=== PATIENT | female | born 1950 | race Caucasian/White ===

== ENCOUNTER → 2024-07-30 07:32 | Outpatient (REF) | payer MEDICARE, BC, SELFPAY | LOC: HWRAD 07:32 | PROVIDERS: ATTENDING PHYSICIAN Internal Medicine | DX: F17.210 Nicotine dependence, cigarettes, uncomplicated (principal) | CPT/HCPCS: 71271 ==

== ENCOUNTER → 2024-09-10 11:26 | Outpatient (REF) | payer MEDICARE, BC, SELFPAY | LOC: HWWDC 11:26 | PROVIDERS: ATTENDING PHYSICIAN Internal Medicine | DX: Z12.31 Encounter for screening mammogram for malignant neoplasm of breast (principal) | CPT/HCPCS: 77063; 77067 ==

== ENCOUNTER → 2025-08-30 07:47 | Outpatient (REF) | payer MEDICARE, BC, SELFPAY | LOC: HWRAD 07:47 | PROVIDERS: ATTENDING PHYSICIAN Internal Medicine | DX: F17.210 Nicotine dependence, cigarettes, uncomplicated (principal) | CPT/HCPCS: 71271 ==

== ENCOUNTER 2025-09-12 07:37 | Emergency (ER) | payer MEDICARE, BC, SELFPAY ==
[2025-09-12 07:42] VITALS: BP 184/106
[2025-09-12 08:13] VITALS: BMI 22.9
[2025-09-12 08:17] VITALS: BP 173/95
--- NOTE | 2025-09-12 08:24 | ED.GENMED ---
History of Present Illness
General
Chief Complaint: Musculo-Skeletal Complaint
Source: patient
Time Seen by Provider: 09/12/25 08:05
History of Present Illness
History of Present Illness:
74-year-old female with past medical history of possible early COPD, anxiety and depression presenting to the emergency department for evaluation of left lateral neck pain for the last 3 days, no exact injury that she can recall, does note that she
had been doing extensive outdoor work prior to the pain developing but no exact mechanism of injury and denies any trauma. Pain is constant, no alleviating factors despite taking Motrin and Tylenol as well as using a heating pad and states cannot
get comfortable in any position. Range of motion of the neck does seem to make the pain worse. Denies any focal weakness or numbness to the upper extremity chest pain, shortness of breath, exertional dyspnea, diaphoresis, cough or any other
concerns. Denies any history of similar but does note that she had previous lower back surgery 20 years ago but that she does not have any long-term complications or pain from this.
Past History
Past History
ED Past Medical History: COPD and Hypercholesterolemia
ED Past Surgical History: Gynecological, Orthopedic and Other (Corneal surgery)
Social History
Tobacco: Smoker (1 pack/day)
Alcohol: None
Drug: None
Personal:
Living: with family
Review of Systems
Review of Systems
All Other Systems: ROS reviewed and negative except as documented in HPI and ROS
Phy Exam
Physical Exam
Physical Exam:
GENERAL: Alert , in no apparent distress
HEAD: Normocephalic atraumatic
EYE: conjunctiva clear
NECK: Supple, FROM but with pain especially when turning head leftward, palpable spasm within trapezius and paracervical musculature on the left, no lymphadenopathy
ENT: o/p clr, mmm.
CARDIAC: Regular rate and rhythm, no murmur
LUNGS: Clear breath sounds bilaterally, no acute respiratory distress, no wheezes/rales/rhonchi
NEUROLOGICAL: Alert and oriented
SKIN: Warm and dry, skin intact.
MUSCULOSKELETAL: well perfused.
PSYCH: Normal and appropriate interaction.
Scores
Heart Failure Risk
Heart Failure Risk Score: Not Applicable
Heart Score for Chest Pain Patients
STEMI patient?: Not applicable
Withdrawal Assessment of Alcohol
Withdrawal Assessment Completed?: Not applicable
Course
Orders/Labs/Results
Orders:
Orders
09/12/25 08:22
Electrocardiogram (*1) Urgent
Reason for Study: Other
Other Reason for Exam: neck pain
EKG- Treatment ONCE
Diazepam [Valium] 5 mg PO NOW STA
Ibuprofen [Motrin] 600 mg PO NOW STA
Lidocaine [Lidocaine 4% Patch] 1 patch TOPICAL NOW STA
Apply Lidocaine patch(s) to:: left lateral neck
09/12/25 08:29
Complete Blood Count/With Diff Urgent
Comprehensive Metabolic Panel Urgent
Troponin I Urgent
09/12/25 08:55
CR Cervical Spine 4 Or 5 Vw Urgent
Comment:
Reason For Exam: left lateral neck pain
Abnormal Lab Results
09/12/25
08:29
Creatinine 0.5 L mg/dL
(0.6-1.0)
Glucose 115 H mg/dl
(70-99)
09/12/25 08:29
09/12/25 08:29
Vital Signs
Initial and Last Documented VS:
Initial Vital Signs
Temp Pulse Resp BP Pulse Ox
97.5 F 89 16 184/106 98
09/12/25 07:42 09/12/25 07:42 09/12/25 07:42 09/12/25 07:42 09/12/25 07:42
Last Documented Vital Signs
Temp Pulse Resp BP Pulse Ox
98.3 F 83 18 158/92 98
09/12/25 09:57 09/12/25 09:57 09/12/25 09:57 09/12/25 09:57 09/12/25 09:57
MDM/Problems Addressed
Differential Diagnosis Includes:
Musculoskeletal neck pain
Atypical ACS considered given her smoking history as well as age
Valvular dysfunction
PE
Malignancy
Less concern for infectious etiology
Nerve entrapment
Disc herniation
MDM/Problems Addressed:
74-year-old female presenting to the ER with left lateral neck pain x 3 days, minimal relief with Motrin and Tylenol at home. Pain does seem to be reproducible with palpation as well as range of motion making me suspect muscular etiology. Patient
was noted to be hypertensive in triage as well as at time of my exam, has a considerable smoking history as well as a family history of heart disease so we will check labs including a troponin as well as EKG although my suspicion for ACS is quite
low. X-ray of the cervical spine ordered. Disposition pending.
*Radiology
Radiology exam reviewed: preliminary read by ED provider (Degenerative changes, no fracture)
*Pulse Oximetry
SaO2: 98
Oxygen Mode of Delivery: Room air
Patient hypoxic: no
*EKG
Interpreted by ED Provider?: Yes
Heart Rate: 71
Rate: normal
Rhythm: sinus
Ischemia: no ischemia
*Dehairer Interpretation
Rate: normal
Heart Rate: 78
Rhythm: sinus
*Critical Care Note
Total Time (30-74mins, 75-104mins- exclusive of procedures): Not Applicable
Data Reviewed
Review of Other/Old Records Reveals: Labs, Records and Radiology Studies
Comment
Comment:
Patient did recently have a low-dose lung CT done on August 30 showing a stable pulmonary nodule within the left lower lobe and mild emphysematous changes. No other abnormalities.
Patient Management
Escalation/DeEscalation of care consider admission/obs:
On reevaluation patient notes considerable relief of pain, now noting a 1 out of 10 discomfort she feels comfortable being discharged home. I reviewed patient's x-ray results with her, she will follow-up with primary care provider. Aware of return
precautions. I also discussed with the patient her elevated blood pressure here and need to follow-up with her primary care provider for this.
ED Attending Note
-
Portions of this chart may have been created with voice recognition software.� Occasional wrong word or��sound alike� substitutions may have occurred due to the inherent limitations of voice recognition software.
Discharge Plan
Departure
Patient Disposition: Home (Routine Discharge)
Date of Disposition: 09/12/25
Time of Disposition: 09:43
Patient with high blood pressure during this ER visit?: Yes
Discharge Problem:
Cervicalgia
Instructions: Neck pain - ED (DC)
Prescriptions:
New
methylprednisolone [Medrol (Yung)] 4 mg tablets,dose pack
4 mg PO DIRECTED Qty: 21 0RF
lidocaine [Lidoderm] 5 % adhesive patch,medicated
1 patch topical DAILY Qty: 30 0RF
diazepam [Valium] 5 mg tablet
5 mg PO BID PRN (Reason: muscle spasm) Qty: 10 0RF
No Action
multivitamin [Daily Multiple] 1 EACH tablet
1 ea PO DAILY
calcium carbonate [calcium] 500 MG tablet
500 mg PO
ferrous sulfate [iron] 325 MG tablet
325 mg PO DAILY
escitalopram oxalate 20 MG tablet
20 mg PO DAILY
glucosamine [id number] 1 EACH tablet
1 ea PO
Vitamin D
DAILY
cyclobenzaprine 10 MG tablet
10 mg PO TIDPRN PRN (Reason: spasm) Qty: 12 0RF
prednisone 10 MG tablet
10 mg PO .TAPER Qty: 30 0RF
Rx Instructions:
Take 40mg daily x3days, 30mg daily x3days,
20mg daily x3days, 10mg daily x3days.
oxycodone-acetaminophen 5 MG/325 MG tablet
1 tab PO Q4HPRN PRN (Reason: pain) Qty: 12 0RF
Referrals:
Jean Carlos Peterson MD [Family Provider, Internal Medicine]
Interventions
Interventions:
*Risk Screen - Suicide Last Done: 09/12/25 07:42
*General Assessment Last Done: 09/12/25 07:42
*Neglect/Abuse Screening Last Done: 09/12/25 07:42
*ED- Fall Risk Assessment Last Done: 09/12/25 08:13
*ED COVID-19 Vaccine History Last Done: 09/12/25 08:13
*ED Influenza Vaccine History Last Done: 09/12/25 08:13
*Nursing Disposition Last Done: 09/12/25 09:57
ED-Musculoskeletal Assessment Last Done: 09/12/25 08:13
Discharge Date and Time
Discharge Date/Time: 09/12/25 09:57
Print Language: BANGLADESHI
[2025-09-12] MEDS: MOTRIN 600 MG PO (08:34)
[2025-09-12] MEDS: LIDOCAINE 4% PATCH 1 PATCH TOPICAL (08:34)
[2025-09-12] MEDS: VALIUM 5 MG PO (08:34)
[2025-09-12 08:37] LABS: Hematocrit 46.0 % (37.0-47.0); Hemoglobin 15.2 g/dL (12.0-16.0); Mean Corp Hgb Conc. 33.0 g/dL (33.0-37.0); Mean Corpuscular Volume 91.3 fL (81.0-99.0); Nucleated Red Blood Cells % 0 %; Platelet Count 216 10^3/uL (130-400); Red Cell Dist. Width 13.3 % (11.5-14.5)
[2025-09-12 08:55] LABS: ALT (SGPT) 23 U/L (0-35); AST (SGOT) 24 U/L (14-36); Albumin 4.2 g/dl (3.5-5.0); Alkaline Phosphatase 82 U/L (38-126); Blood Urea Nitrogen 11 mg/dl (7-17); Calcium 9.1 mg/dl (8.4-10.2); Carbon Dioxide 29 mmol/L (22-30); Chloride 106 mmol/L (98-107); Estimated Creatinine Clearance 75 ml/min; Glucose 115 mg/dl (70-99); Potassium 4.3 mmol/L (3.5-5.1); Sodium 139 mmol/L (135-145); Total Protein 6.7 g/dl (6.3-8.2); eGFR > 60.00
[2025-09-12 09:00] VITALS: BP 158/92
[2025-09-12 09:07] LABS: Troponin I < 0.012 ng/ml
--- NOTE | 2025-09-12 09:56 | EDRN ---
Reviewed discharge instructions with patient. Verbalized understanding. Ambulated with steady gait to the lobby.
[2025-09-12 09:57] VITALS: BP 158/92
== END 2025-09-12 09:57 | disposition home or self-care (01) ==
LOC: EMR 07:37
PROVIDERS: Physician Assistant Medical; EMERGENCY PHYSICIAN Emergency Medicine; FAMILY PHYSICIAN Internal Medicine
DX: M54.2 Cervicalgia (principal); E78.00 Pure hypercholesterolemia, unspecified; J44.9 Chronic obstructive pulmonary disease, unspecified; F41.9 Anxiety disorder, unspecified; F32.A Depression, unspecified; F17.200 Nicotine dependence, unspecified, uncomplicated
CPT/HCPCS: 99284; 72050; 80053; 84484; 85025; 93005

== ENCOUNTER → 2025-10-21 09:03 | Outpatient (REF) | payer MEDICARE, BC, SELFPAY | LOC: HWRCS 09:03 | PROVIDERS: ATTENDING PHYSICIAN Internal Medicine Critical Care Medicine; FAMILY PHYSICIAN Internal Medicine | DX: I27.20 Pulmonary hypertension, unspecified (principal) | CPT/HCPCS: 93306 ==